=== PATIENT | male | born 1985 | race Caucasian/White ===

== ENCOUNTER 2021-05-06 01:11 | Emergency (ER) | payer MEDICAID, OTHER ==
[~2021-05-06] VITALS: Ht 175.3 cm; Wt 100.0 kg
[2021-05-06 01:38] VITALS: BP 145/88
== END 2021-05-06 05:22 | disposition left against medical advice (07) ==
LOC: ER 01:11
DX: M54.5 Low back pain (principal); Z53.21 Procedure and treatment not carried out due to patient leaving prior to being seen by health care provider